=== PATIENT | female | born 1950 | race Caucasian/White ===

== ENCOUNTER → 2017-05-02 | Outpatient (CLI) | payer MEDICARE, OTHER, MEDICAID | END | disposition home or self-care (01) | LOC: Rad HDHVI 09:00 | PROVIDERS: ATTEND Internal Medicine Cardiovascular Disease | DX: I10 Essential (primary) hypertension (principal); R06.02 Shortness of breath | CPT/HCPCS: 93306 ==

== ENCOUNTER → 2019-10-18 | Outpatient (CLI) | payer MEDICARE, BC, MEDICAID ==
[~2019-10-18] VITALS: Ht 160 cm; Wt 113.4 kg
[~2019-10-18] MED LIST: ADENOSINE 90 MG/30 ML INJ IV ONE; ADENOSINE 95 MG in GIVE UN-DILUTED 0 ML IV ONE
== END | disposition home or self-care (01) ==
LOC: Rad HDHVI 12:45
PROVIDERS: ATTEND Internal Medicine Cardiovascular Disease
DX: I11.9 Hypertensive heart disease without heart failure (principal); E11.9 Type 2 diabetes mellitus without complications; Z82.49 Family history of ischemic heart disease and other diseases of the circulatory system
CPT/HCPCS: 78452; 93005; 93306; 96374; 96375; A9500; J0153

== ENCOUNTER → 2021-02-12 | Outpatient (CLI) | payer MEDICARE, BC, MEDICAID ==
[~2021-02-12] VITALS: Ht 157.5 cm; Wt 117.0 kg
[~2021-02-12] MED LIST changes: -ADENOSINE 95 MG in GIVE UN-DILUTED 0 ML IV ONE; +ADENOSINE 98 MG in GIVE UN-DILUTED 0 ML IV ONE
== END | disposition home or self-care (01) ==
LOC: Rad HDHVI 09:14
PROVIDERS: ATTEND Internal Medicine Cardiovascular Disease
DX: I25.10 Atherosclerotic heart disease of native coronary artery without angina pectoris (principal); I10 Essential (primary) hypertension; E11.9 Type 2 diabetes mellitus without complications; R07.9 Chest pain, unspecified; I25.2 Old myocardial infarction; Z95.0 Presence of cardiac pacemaker; Z95.1 Presence of aortocoronary bypass graft; Z82.49 Family history of ischemic heart disease and other diseases of the circulatory system
CPT/HCPCS: 78452; 93005; 96374; 96375; A9500; J0153

== ENCOUNTER → 2021-09-22 | Outpatient (CLI) | payer MEDICARE, BC, MEDICAID | END | disposition home or self-care (01) | LOC: Rad HDHVI 10:58 | PROVIDERS: ATTEND Internal Medicine Cardiovascular Disease | DX: I63.9 Cerebral infarction, unspecified (principal); R56.9 Unspecified convulsions; M47.814 Spondylosis without myelopathy or radiculopathy, thoracic region; M19.012 Primary osteoarthritis, left shoulder; M19.011 Primary osteoarthritis, right shoulder | CPT/HCPCS: 71046 ==

== ENCOUNTER → 2022-10-14 | Outpatient (CLI) | payer MEDICARE, BC | END | disposition home or self-care (01) | LOC: Rad HDHVI 13:21 | PROVIDERS: ATTEND Internal Medicine Cardiovascular Disease | DX: I35.8 Other nonrheumatic aortic valve disorders (principal); I11.9 Hypertensive heart disease without heart failure; E78.5 Hyperlipidemia, unspecified | CPT/HCPCS: 93306 ==

== ENCOUNTER 2022-11-29 18:55 | Inpatient (IN) | payer BC, MEDICARE, MEDICAID ==
[~2022-11-29] VITALS: Ht 152.4 cm; Wt 108.0 kg
[2022-11-29] MEDS ORDERED: NITROGLYCERIN 0.4 MG SL TAB SL PRN (22:15)
[2022-11-29] MEDS ORDERED: MORPHINE SULFATE INJ 2 MG/ml SYRG IV PRN (22:15)
[2022-11-29] MEDS ORDERED: DEXTROSE (50%) 50ML SYRG IV PRN (22:15)
[2022-11-29] MEDS ORDERED: guaiFENesin 200 MG/10 ML UD PO PRN (22:15)
[2022-11-29 22:43] VITALS: BP 115/62; PULSE 72; PULSE 75; RESP 20; RESP 22; O2SAT 96; O2SAT 98
[2022-11-29 23:18] VITALS: PULSE 66; O2SAT 100
[2022-11-29] MEDS ORDERED: LISI2.5T47 PO (23:25)
[2022-11-29] MEDS ORDERED: ATO40T PO (23:25)
[2022-11-29] MEDS ORDERED: TOPI25TA84 PO (23:25)
[2022-11-29] MEDS ORDERED: TORS20TA20 PO (23:25)
[2022-11-29] MEDS ORDERED: OXYB5TAB10 GT (23:25)
[2022-11-29] MEDS ORDERED: HYDR-4798 PO (23:25)
[2022-11-29] MEDS ORDERED: ALPR0.254 PO (23:25)
[2022-11-29] MEDS ORDERED: DAPA1TAB4 PO (23:25)
[2022-11-29] MEDS ORDERED: FEXO-42 PO (23:25)
[2022-11-29] MEDS ORDERED: INSU1INJ19 SC (23:25)
[2022-11-29] MEDS ORDERED: GLIP5TAB12 PO (23:25)
[2022-11-29] MEDS ORDERED: FLUT110A INH (23:25)
[2022-11-29] MEDS ORDERED: GABA-1250 PO (23:25)
[2022-11-29] MEDS ORDERED: MAGN400T40 PO (23:25)
[2022-11-29] MEDS ORDERED: GUAI200T6 PO (23:25)
[2022-11-29] MEDS ORDERED: METO25TA93 PO (23:25)
[2022-11-29] MEDS ORDERED: OMEG1400 PO (23:25)
[2022-11-29] MEDS ORDERED: ASPI-498 OR (23:25)
[2022-11-29] MEDS ORDERED: PHEN1CAP60 PO (23:25)
[2022-11-29] MEDS ORDERED: OMEP20TA PO (23:25)
[2022-11-29 23:46] LABS: Basophils # (auto) 0 10 ^3/uL (0-0.2); Basophils % (auto) 0.3 % (0.0-2.0); Eosinophils # (auto) 0 10 ^3/uL (0-0.8); Eosinophils % (auto) 0.1 % (0.0-7.0); Hematocrit 40.8 % (36.0-46.0); Hemoglobin 13.6 g/dL (12.2-16.2); Lymphocytes # (auto) 1.6 10 ^3/uL (0.4-5.4); Lymphocytes % (auto) 16.3 % (10.0-50.0); Mean Corpuscular Hemoglobin 32.6 pg (28.0-32.0); Mean Corpuscular Hgb Conc. 33.5 g/dL (32.0-36.0); Mean Corpuscular Volume 97.5 fL (80.0-100.0); Monocytes # (auto) 0.8 10 ^3/uL (0-1.3); Monocytes % (auto) 7.7 % (0.0-12.0); Neutrophils # (auto) 7.6 10 ^3/uL (1.6-8.6); Neutrophils % (auto) 75.6 % (37.0-80.0); Nucleated Red Blood Cells % 0.2 %; Red Blood Cells 4.18 10^6/uL (4.0-5.20); Red Cell Distribution Width 14.3 % (11.8-14.3); White Blood Cell 10.1 10^3/uL (4.4-10.8)
[2022-11-30] VITALS (17 sets, daily range): BP systolic 134–177; BP diastolic 79–95; PULSE 76–94; RESP 18–25; TEMP 98.2–98.6; O2SAT 94–100
[2022-11-30 00:07] LABS: BUN/Creatinine Ratio 36.2 (10.0-20.0); Calcium 7.6 mg/dL (8.5-10.1); Potassium 4.4 mmol/L (3.5-5.1)
[2022-11-30] MEDS: GABAPENTIN 300 MG CAP PO SCH ×3 (06:00→21:06)
[2022-11-30] MEDS: ALBUTEROL SULF 2.5 MG/0.5ML(0.5%) NEB SOLN NEB SCH ×3 (06:12→18:04)
[2022-11-30] MEDS: glipiZIDE 5 MG TAB PO SCH (07:00)
[2022-11-30] MEDS: InsuLIN REG 1unit/0.01ml Soln (100units/ml) SC SCH ×4 (07:07→21:32)
[2022-11-30] MEDS: ACCU-CHEK COMFORT CURVE STRIP VI SCH ×4 (07:07→21:28)
[2022-11-30] MEDS ORDERED: LORazepam 2MG/ML-1ML VIAL IV PRN (07:15)
[2022-11-30 09:39] LABS: Urine Bacteria NONE SEEN /hpf (None Seen); Urine Blood 2+ /uL (Negative); Urine Budding Yeast MANY /hpf (None Seen); Urine WBC 1138 /hpf (0 - 5); Urine WBC Clumps PRESENT /hpf (None Seen)
[2022-11-30] MEDS: PANTOPRAZOLE 40 MG TAB PO SCH (10:00)
[2022-11-30] MEDS: TORSEMIDE 20 MG TAB PO SCH (10:00)
[2022-11-30] MEDS: OXYBUTYNIN CHL 5 MG TAB PO SCH (10:00)
[2022-11-30] MEDS: TOPIRAMATE 25 MG TAB PO SCH (10:00)
[2022-11-30] MEDS: METOPROLOL SUCCINATE XL 50 MG TAB PO SCH (10:00)
[2022-11-30] MEDS ORDERED: cefTRIAXone 1GM/50ML D5W 50 ML IV ONE (13:15)
[2022-11-30] MEDS ORDERED: acetaZOLAMIDE SODIUM 500 MG VL IV ONE (13:45)
[2022-11-30] MEDS ORDERED: cloNIDine HCL 0.1 MG TAB PO PRN (18:00)
[2022-11-30] MEDS: PHENYTOIN SODIUM 100 MG CAP PO SCH (21:06)
[2022-11-30] MEDS: HYDROcodone-ACET 10/325MG TAB PO PRN (21:07)
[2022-11-30] MEDS: ENOXAPARIN SOD 40 MG/0.4 ML SYRINGE SC SCH (21:07)
[2022-12-01] VITALS (12 sets, daily range): BP systolic 149–158; BP diastolic 69–83; PULSE 70–85; RESP 16–19; TEMP 97.7–98.6; O2SAT 95–99
[2022-12-01] MEDS: ALBUTEROL SULF 2.5 MG/0.5ML(0.5%) NEB SOLN NEB SCH ×3 (06:32→18:52)
[2022-12-01] MEDS: GABAPENTIN 300 MG CAP PO SCH ×3 (06:43→21:07)
[2022-12-01] MEDS: ACCU-CHEK COMFORT CURVE STRIP VI SCH ×4 (06:45→21:08)
[2022-12-01] MEDS: glipiZIDE 5 MG TAB PO SCH (06:45)
[2022-12-01] MEDS: InsuLIN REG 1unit/0.01ml Soln (100units/ml) SC SCH ×4 (06:55→21:25)
[2022-12-01] MEDS: ENOXAPARIN SOD 40 MG/0.4 ML SYRINGE SC SCH ×2 (08:45→21:07)
[2022-12-01] MEDS: cefTRIAXone 1GM/50ML D5W 50 ML IV SCH (08:45)
[2022-12-01] MEDS: TORSEMIDE 20 MG TAB PO SCH (08:46)
[2022-12-01] MEDS: OXYBUTYNIN CHL 5 MG TAB PO SCH (08:48)
[2022-12-01] MEDS: PANTOPRAZOLE 40 MG TAB PO SCH (08:48)
[2022-12-01] MEDS: TOPIRAMATE 25 MG TAB PO SCH (08:49)
[2022-12-01] MEDS: METOPROLOL SUCCINATE XL 50 MG TAB PO SCH (08:53)
[2022-12-01] MEDS ORDERED: cefTRIAXone 1GM/50ML D5W 50 ML IV SCH (09:00)
[2022-12-01] MEDS ORDERED: ENOXAPARIN SOD 60 MG/0.6 ML SYRINGE SC SCH (10:00)
[2022-12-01 10:21] LABS: Basophils # (auto) 0 10 ^3/uL (0-0.2); Basophils % (auto) 0.4 % (0.0-2.0); Eosinophils # (auto) 0.1 10 ^3/uL (0-0.8); Hematocrit 43.6 % (36.0-46.0); Hemoglobin 14.4 g/dL (12.2-16.2); Lymphocytes # (auto) 1.2 10 ^3/uL (0.4-5.4); Lymphocytes % (auto) 16.1 % (10.0-50.0); Mean Corpuscular Hemoglobin 32.3 pg (28.0-32.0); Mean Corpuscular Volume 97.7 fL (80.0-100.0); Monocytes # (auto) 0.4 10 ^3/uL (0-1.3); Monocytes % (auto) 6.2 % (0.0-12.0); Neutrophils # (auto) 5.5 10 ^3/uL (1.6-8.6); Neutrophils % (auto) 76.3 % (37.0-80.0); Nucleated Red Blood Cells % 0.1 %; Red Blood Cells 4.46 10^6/uL (4.0-5.20); Red Cell Distribution Width 13.5 % (11.8-14.3); White Blood Cell 7.2 10^3/uL (4.4-10.8)
[2022-12-01 10:42] LABS: Albumin 2.7 g/dL (3.4-5.0); Calcium 8.4 mg/dL (8.5-10.1); Potassium 4.1 mmol/L (3.5-5.1)
[2022-12-01 10:45] LABS: BUN/Creatinine Ratio 36.1 (10.0-20.0); Bilirubin, Total 0.3 mg/dL (0.2-1.0); Total Protein 6.7 g/dL (6.4-8.2)
[2022-12-01] MEDS: ARMODAFINIL 150 MG TAB PO SCH (14:18)
[2022-12-01] MEDS: HYDROcodone-ACET 10/325MG TAB PO PRN (20:40)
[2022-12-01] MEDS: PHENYTOIN SODIUM 100 MG CAP PO SCH (21:07)
[2022-12-01] MEDS: NYSTATIN TOPICAL POWDER 15GM TOP SCH (21:20)
[2022-12-02] VITALS (12 sets, daily range): BP systolic 118–156; BP diastolic 58–70; PULSE 53–86; RESP 16–20; TEMP 98–99; O2SAT 92–100
[2022-12-02] MEDS: glipiZIDE 5 MG TAB PO SCH (06:13)
[2022-12-02] MEDS: GABAPENTIN 300 MG CAP PO SCH ×3 (06:13→21:29)
[2022-12-02] MEDS: ACCU-CHEK COMFORT CURVE STRIP VI SCH ×4 (06:14→21:30)
[2022-12-02] MEDS: InsuLIN REG 1unit/0.01ml Soln (100units/ml) SC SCH ×4 (06:17→21:44)
[2022-12-02] MEDS: ALBUTEROL SULF 2.5 MG/0.5ML(0.5%) NEB SOLN NEB SCH ×3 (07:03→19:52)
[2022-12-02] MEDS: cefTRIAXone 1GM/50ML D5W 50 ML IV SCH (08:11)
[2022-12-02] MEDS: TORSEMIDE 20 MG TAB PO SCH (09:23)
[2022-12-02] MEDS: OXYBUTYNIN CHL 5 MG TAB PO SCH (09:23)
[2022-12-02] MEDS: TOPIRAMATE 25 MG TAB PO SCH (09:23)
[2022-12-02] MEDS: ENOXAPARIN SOD 40 MG/0.4 ML SYRINGE SC SCH ×2 (09:23→21:30)
[2022-12-02] MEDS: METOPROLOL SUCCINATE XL 50 MG TAB PO SCH (09:25)
[2022-12-02] MEDS: PANTOPRAZOLE 40 MG TAB PO SCH (09:25)
[2022-12-02] MEDS: NYSTATIN TOPICAL POWDER 15GM TOP SCH ×2 (09:27→21:33)
[2022-12-02] MEDS: ARMODAFINIL 150 MG TAB PO SCH (09:54)
[2022-12-02] MEDS ORDERED: acetaZOLAMIDE SODIUM 500 MG VL IV ONE (14:30)
[2022-12-02] MEDS: PHENYTOIN SODIUM 100 MG CAP PO SCH (21:27)
[2022-12-02] MEDS: HYDROcodone-ACET 10/325MG TAB PO PRN (21:30)
[2022-12-03] VITALS (12 sets, daily range): BP systolic 124–133; BP diastolic 61–70; PULSE 64–86; RESP 16–20; TEMP 97.6–98; O2SAT 91–99
[2022-12-03] MEDS: ALBUTEROL SULF 2.5 MG/0.5ML(0.5%) NEB SOLN NEB SCH ×2 (06:18→11:55)
[2022-12-03] MEDS: glipiZIDE 5 MG TAB PO SCH (06:26)
[2022-12-03] MEDS: GABAPENTIN 300 MG CAP PO SCH ×2 (06:27→13:38)
[2022-12-03] MEDS: ACCU-CHEK COMFORT CURVE STRIP VI SCH ×3 (06:27→17:00)
[2022-12-03] MEDS: InsuLIN REG 1unit/0.01ml Soln (100units/ml) SC SCH ×3 (06:29→17:40)
[2022-12-03 06:56] LABS: Chloride 103 mmol/L (98-107); Potassium 3.4 mmol/L (3.5-5.1); Sodium 135 mmol/L (136-145)
[2022-12-03 07:20] LABS: Anion Gap 4 (5-15); BUN/Creatinine Ratio 37.7 (10.0-20.0); Blood Urea Nitrogen 23 mg/dL (7-18); Carbon Dioxide 28 mmol/L (21-32); GFR African American 124 mL/min; GFR Non-African American 102 mL/min; Glucose 203 mg/dL (74-106)
[2022-12-03] MEDS: cefTRIAXone 1GM/50ML D5W 50 ML IV SCH (08:50)
[2022-12-03] MEDS: NYSTATIN TOPICAL POWDER 15GM TOP SCH (09:01)
[2022-12-03] MEDS: ENOXAPARIN SOD 40 MG/0.4 ML SYRINGE SC SCH (09:01)
[2022-12-03] MEDS: PANTOPRAZOLE 40 MG TAB PO SCH (09:02)
[2022-12-03] MEDS: OXYBUTYNIN CHL 5 MG TAB PO SCH (09:02)
[2022-12-03] MEDS: TOPIRAMATE 25 MG TAB PO SCH (09:02)
[2022-12-03] MEDS: METOPROLOL SUCCINATE XL 50 MG TAB PO SCH (09:08)
[2022-12-03] MEDS: ARMODAFINIL 150 MG TAB PO SCH (09:22)
[2022-12-03] MEDS: TORSEMIDE 20 MG TAB PO SCH (09:22)
== END 2022-12-03 17:57 | disposition home or self-care (01) | DRG 871 ==
LOC: TELE-WESTW 21:30 → UNDOADMIN 21:30 → TELE-WESTW 22:40
PROVIDERS: ADMIT Internal Medicine Cardiovascular Disease; ATTEND Internal Medicine Cardiovascular Disease
PROC: 5A09357 Assistance with Respiratory Ventilation, Less than 24 Consecutive Hours, Continuous Positive Airway Pressure (ICD-10-PCS; principal; 2022-11-29)
PROC: 05HA33Z Insertion of Infusion Device into Left Brachial Vein, Percutaneous Approach (ICD-10-PCS; 2022-11-30)
PROC: B54NZZA Ultrasonography of Left Upper Extremity Veins, Guidance (ICD-10-PCS; 2022-11-30)
DX: A41.9 Sepsis, unspecified organism (principal); J96.90 Respiratory failure, unspecified, unspecified whether with hypoxia or hypercapnia; E87.4 Mixed disorder of acid-base balance; N39.0 Urinary tract infection, site not specified; Z68.42 Body mass index [BMI] 45.0-49.9, adult; E11.22 Type 2 diabetes mellitus with diabetic chronic kidney disease; E66.9 Obesity, unspecified; G40.909 Epilepsy, unspecified, not intractable, without status epilepticus; E11.42 Type 2 diabetes mellitus with diabetic polyneuropathy; I12.9 Hypertensive chronic kidney disease with stage 1 through stage 4 chronic kidney disease, or unspecified chronic kidney disease; N18.30 Chronic kidney disease, stage 3 unspecified; E11.40 Type 2 diabetes mellitus with diabetic neuropathy, unspecified
CPT/HCPCS: 36415; 36600; 71045; 80048; 80053; 80185; 81001; 82805; 82962; 85025; 92610; 94640; 94660; 97163; G0378; J0696; J1815

== ENCOUNTER → 2024-10-09 | Outpatient (CLI) | payer MEDICARE, MEDICAID, BC ==
[~2024-10-09] MED LIST changes: -ADENOSINE 90 MG/30 ML INJ IV ONE; -ADENOSINE 98 MG in GIVE UN-DILUTED 0 ML IV ONE; +ALPR0.254 PO; +ASPI-498 OR; +ATOR-507 PO; +DAPA1TAB4 PO; +FEXO-42 PO; +FLUT110A INH; +GABA-1250 PO; +GLIP5TAB21 PO; +GUAI200T6 PO; +HYDR-4798 PO; +INSU1INJ19 SC; +LISI2.5T47 PO; +MAGN400T40 PO; +METO25TA93 PO; +OMEG1400 PO; +OMEP20TA PO; +OXYB5TAB14 GT; +PHEN1CAP38 PO; +TOPI25TA84 PO; +TORS20TA20 PO
[2024-10-09 11:43] VITALS: BP 97/41; PULSE 83; RESP 18; O2SAT 93
[2024-10-09] MEDS: cefTRIAXone 1GM/50ML D5W 50 ML IV ONE ×2 (11:53→11:55)
[2024-10-09] MEDS: BUMETANIDE INJECTION 10 ML ONE (11:53)
[2024-10-09] MEDS: BUMETANIDE 2.5mg/10ml (0.25 mg/ml) INJ IV ONE (12:33)
[2024-10-09 12:55] VITALS: BP 150/66; PULSE 89; RESP 18; O2SAT 93
== END | disposition home or self-care (01) ==
LOC: CHF HDHVI 11:49
PROVIDERS: ATTEND Internal Medicine Cardiovascular Disease
DX: L03.116 Cellulitis of left lower limb (principal); I12.9 Hypertensive chronic kidney disease with stage 1 through stage 4 chronic kidney disease, or unspecified chronic kidney disease; E11.22 Type 2 diabetes mellitus with diabetic chronic kidney disease; N18.30 Chronic kidney disease, stage 3 unspecified; E11.42 Type 2 diabetes mellitus with diabetic polyneuropathy; G40.909 Epilepsy, unspecified, not intractable, without status epilepticus; M19.012 Primary osteoarthritis, left shoulder; E78.5 Hyperlipidemia, unspecified; M19.011 Primary osteoarthritis, right shoulder; I25.10 Atherosclerotic heart disease of native coronary artery without angina pectoris; I25.2 Old myocardial infarction; E66.9 Obesity, unspecified; Z68.42 Body mass index [BMI] 45.0-49.9, adult; Z95.0 Presence of cardiac pacemaker; Z87.440 Personal history of urinary (tract) infections; Z95.1 Presence of aortocoronary bypass graft
CPT/HCPCS: 96365; 96375; G0463; J0696

== ENCOUNTER → 2024-10-11 | Outpatient (CLI) | payer MEDICARE, MEDICAID, BC ==
[2024-10-11 13:25] VITALS: BP 156/69; PULSE 81; RESP 18; O2SAT 92
[2024-10-11] MEDS: BUMETANIDE INJECTION 10 ML ONE (13:38)
[2024-10-11] MEDS: cefTRIAXone 1GM/50ML D5W 50 ML IV ONE ×2 (13:38→13:52)
[2024-10-11] MEDS: BUMETANIDE 2.5mg/10ml (0.25 mg/ml) INJ IV ONE (14:21)
[2024-10-11 14:46] VITALS: BP 145/65; PULSE 88; RESP 18; O2SAT 92
== END | disposition home or self-care (01) ==
LOC: CHF HDHVI 13:12
PROVIDERS: ATTEND Internal Medicine Cardiovascular Disease
DX: L03.116 Cellulitis of left lower limb (principal); I12.9 Hypertensive chronic kidney disease with stage 1 through stage 4 chronic kidney disease, or unspecified chronic kidney disease; E11.22 Type 2 diabetes mellitus with diabetic chronic kidney disease; N18.30 Chronic kidney disease, stage 3 unspecified; E11.42 Type 2 diabetes mellitus with diabetic polyneuropathy; I25.10 Atherosclerotic heart disease of native coronary artery without angina pectoris; G40.909 Epilepsy, unspecified, not intractable, without status epilepticus; E78.5 Hyperlipidemia, unspecified; M19.012 Primary osteoarthritis, left shoulder; M19.011 Primary osteoarthritis, right shoulder; I25.2 Old myocardial infarction; E66.9 Obesity, unspecified; Z68.42 Body mass index [BMI] 45.0-49.9, adult; Z87.440 Personal history of urinary (tract) infections; Z95.1 Presence of aortocoronary bypass graft; Z95.0 Presence of cardiac pacemaker
CPT/HCPCS: 96365; 96375; G0463; J0696

== ENCOUNTER 2024-11-05 17:49 | Emergency (ER) | payer MEDICARE, BC, MEDICAID ==
[~2024-11-05] VITALS: Ht 157.5 cm; Wt 105.4 kg
--- NOTE | 2024-11-05 18:18 | ED.PDOC ---
Musculoskeletal HPI Comments HPI: 74y F who presents to the ED for chief complaint of extremity swelling. - pt is accompanied by sister who states pt has been having LLE redness, pain and swelling for the past 2 days - pt LLE is noted to be swollen and pt sister states the LLE feels hard and is hyperpigmented - pt in the ED, otherwise denies any other symptoms - pt noted to be in wheelchair in the ED Past Medical history: UTI, epilepsy, sepsis, HTN, DM, thyroid disease, COPD, Past Surgical history: cholecystectomy, hysterectomy, bronchoscopy Medications: Lasix, Tegretol, hydrocodone, Allergies: denies Social History: denies ETOH, denies tobacco use, denies drug use HPI: Poor Historian. REVIEW OF SYSTEMS: CONSTITUTIONAL: Denies acute: fever, diaphoresis, chills, generalized weakness. HEAD: Denies acute: headache, photophobia Eyes: Denies acute: Double vision, vision loss, eye pain, eye discharge. EARS: Denies acute: tinnitus, hearing loss, ear discharge, ear pain, THROAT: Denies acute: sore throat, swelling, difficulty swallowing , pain with swallowing, change in voice. NECK: Denies acute: neck pain, neck swelling, stiff neck. HEART: Denies acute : chest pain, palpitations, LUNGS: Denies acute: SOB, wheezing, cough, hemoptysis ABDOMEN: Denies acute: abdominal pain, Nausea, Vomiting, diarrhea, melena , hematemesis, hematochezia SKIN: Denies acute: lesions, itchiness. EXTREMITIES: Denies acute: calf pain, numbness, tingling, weakness, Denies acute: Low back pain. Neuro: Denies acute: focal neurological deficit, motor or sensory focal neurological deficit, tremors, seizure like activity, confusion, dizziness, change in mental status, loss of bowel or bladder function, cauda equina like symptoms. : Denies acute: dysuria, hematuria, flank pain, increase in urinary frequency. PSYCH: Denies acute: hallucination, suicidal ideation, homicidal ideation. FEMALE: Denies acute: abnormal vaginal bleeding, foul odor, unusual discharge. PHYSICAL EXAM: General: ----no---acute distress, awake and alert. Head: normocephalic, atraumatic. Neck: supple, trachea is midline, no swelling. Throat: Normal phonation. Eyes:, no erythema, no purulent discharge, no proptosis, no icterus. Heart: regular rate, regular rhythm, no significant murmur appreciated. Lungs: no apparent respiratory distress, Able to speak in full sentences. No wheezing, no rhonchi, no crackles. No stridors Clear to auscultation bilaterally. Abdomen: non tender to palpation, non distended, soft, no guarding, no rebound, + bowel sounds. Obese Neuro: Awake, Alert, oriented to name, self, situation, follows commands GCS=15. Speech is normal. Skin: no petechia, no purpura, no cyanosis, non-pale, not jaundice. Lower extremities: --2/4 b/l - Pitting edema no deformity, , no calf TTP. Evaluation of the area of complaint: Left foot symmetrically edematous to the right foot however there is erythema. Pedal pulses palpable. Patient is anthony rovascularly intact in the affected extremity. Makes eye contact. moves all four extremities. Face: no apparent facial droop. Pedal pulses are palpable. ED COURSE: DISCLAIMER: This medical document was created using an electronic medical record system with voice recognition software and computerized dictation system. Although this document has been carefully reviewed, there might still be some phonetic and typographical errors. Occasional wrong-word or "sound-alike" substitutions may have occurred due to the inherent limitations of voice recognition software. These areas are purely typographical due to imperfections of the software programs and do not reflect any compromise in the patient's medical care. Please read the chart carefully and recognize, using context, where these substitutions have occurred. Chief Complaint: Lower Extremity Time Seen by MD: 18:28 Primary Care Provider: AMADA Reviewed Notes: Medications, Allergies Allergies: Coded Allergies: NO KNOWN ALLERGIES (Unverified , 10/18/19) Home Meds Active Scripts Clindamycin Hcl (Clindamycin Hcl) 300 Mg Cap, 1 CAP PO TID for 7 Days, #21 CAP Prov:ARIC BARRETT DO 11/05/24 Reported Medications Torsemide (Torsemide) 20 Mg Tab, 20 MG PO, MG 11/29/22 Topiramate (Topiramate) 25 Mg Tab, 1 TAB PO DAILY, #90 TAB 1 Refill 11/29/22 Oxybutynin Chloride (Oxybutynin Chloride) 5 Mg Tab, 5 MG GT, TAB 11/29/22 Omeprazole (Gnp Omeprazole) 20 Mg Tab, 1 TAB PO DAILY, #90 TAB 1 Refill 11/29/22 Tracy-3 Fatty Acids (Tracy-3) 1,400 Mg Cap, 520 MG PO, CAP 11/29/22 Metoprolol Succinate (Metoprolol Succinate Er) 25 Mg Tab, 25 MG PO DAILY for 30 Days, MG 11/29/22 Metoprolol Succinate (Metoprolol Succinate Er) 25 Mg Tab, 25 MG PO DAILY for 30 Days, MG 11/29/22 Magnesium Oxide (MAGNESIUM OXIDE) 400 Mg Tab, 1 TAB PO DAILY, #30 TAB 5 Refills 11/29/22 Lisinopril (Lisinopril) 2.5 Mg Tab, 5 MG PO, TAB 11/29/22 Hydrocodone-Acetaminophen (Hydrocodone Bitartrate/AC 10-325 mg) 1 Tab Tab, 1 TAB PO, TAB 11/29/22 Guaifenesin (Guaifenesin) 200 Mg Tab, 100 MG PO, TAB 11/29/22 Glipizide (Glipizide) 5 Mg Tab, 5 MG PO for 30 Days, MG 11/29/22 Gabapentin (Gabapentin) 300 Mg Cap, 300 MG PO Q6HR for 30 Days, MG 11/29/22 Fluticasone Propionate (FLOVENT HFA 110Mcg INH) 110 Mcg Ih, 110 MCG INH Q12HR for 30 Days, MCG 11/29/22 Dapagliflozin Propanediol (Farxiga) 10 Mg Tab, 10 MG PO, TAB 11/29/22 Phenytoin Sodium (DILANTIN CAPSULE) 100 Mg Cp, 400 MG PO BID, CAP 11/29/22 Insulin Glargine (Basaglar Kwikpen) 100 Unit/Ml Inj, SC, INJ 11/29/22 Atorvastatin Calcium (Lipitor) 40 Mg Tab, 1 TAB PO QPM, #90 TAB 1 Refill 11/29/22 Aspirin (ASPIRIN 81) 81 Mg Tab, 81 MG OR, TAB 11/29/22 Alprazolam (Alprazolam) 0.25 Mg Tab, 1 TAB PO DAILY, #30 TAB 11/29/22 Fexofenadine Hydrochloride (EDDIE ALLERGY) 180 Mg Tab, 1 TAB PO DAILY, #30 TAB 2 Refills 11/29/22 Information Source: Patient Mode of Arrival: Wheelchair Was a procedure done? Was a procedure done?: No Differential Diagnosis EXT Differential Diagnosis: Cellulitis, CHF, Deep Vein Thrombosis, Compartment Syndrome, Sprain, Strain, Septic, Neurovascular injury, Other (Leg swellingDdx include but not limited to DVT, ischemic limb, pitting edema, volume overload, CHF, cellulitis, hematoma, compartment syndrome, dependent edema, venous stasis.) X-Ray, Labs, Meds, VS Vital Signs Date Time Temp Pulse Resp B/P (MAP) Pulse Ox O2 Delivery O2 Flow Rate FiO2 11/05/24 21:49 154/78 11/05/24 21:36 Room Air* 0 21 11/05/24 21:36 97.5 79 16 157/73 (101) 96 97.5 11/05/24 18:12 91 11/05/24 18:11 98.3 94 16 135/67 (89) 94 98.3 Lab Test 11/05/24 19:12 Range/Units White Blood Count 7.0 4.4-10.8 10^3/uL Red Blood Count 4.03 4.0-5.20 10^6/uL Hemoglobin 13.2 12.2-16.2 g/dL Hematocrit 38.1 36.0-46.0 % Mean Corpuscular Volume 94.5 80.0-100.0 fL Mean Corpuscular Hemoglobin 32.7 H 28.0-32.0 pg Mean Corpuscular Hemoglobin Concent 34.6 32.0-36.0 g/dL Red Cell Distribution Width 13.8 11.8-14.3 % Platelet Count 193 140-450 10^3/uL Mean Platelet Volume 7.4 6.9-10.8 fL Neutrophils (%) (Auto) 68.6 37.0-80.0 % Lymphocytes (%) (Auto) 20.5 10.0-50.0 % Monocytes (%) (Auto) 7.5 0.0-12.0 % Eosinophils (%) (Auto) 2.9 0.0-7.0 % Basophils (%) (Auto) 0.5 0.0-2.0 % Neutrophils # (Auto) 4.8 1.6-8.6 10 ^3/uL Lymphocytes # (Auto) 1.4 0.4-5.4 10 ^3/uL Monocytes # (Auto) 0.5 0-1.3 10 ^3/uL Eosinophils # (Auto) 0.2 0-0.8 10 ^3/uL Basophils # (Auto) 0 0-0.2 10 ^3/uL Nucleated Red Blood Cells 0.1 % Erythrocyte Sedimentation Rate 29 H 0-20 mm/hr Sodium Level 147 H 136-145 mmol/L Potassium Level 3.8 3.5-5.1 mmol/L Chloride Level 111 H 98-107 mmol/L Carbon Dioxide Level 29 20-31 mmol/L Anion Gap 7 5-15 Blood Urea Nitrogen 14 9-23 mg/dL Creatinine 0.57 0.550-1.02 mg/dL Glomerular Filtration Rate Calc 95 >90 mL/min BUN/Creatinine Ratio 24.6 H 10.0-20.0 Serum Glucose 156 H 74-106 mg/dL Lactic Acid Level 1.4 0.4-2.0 mmol/L Calcium Level 9.2 8.7-10.4 mg/dL Total Bilirubin 0.2 0.2-1.0 mg/dL Aspartate Amino Transferase (AST) 13 <34 U/L Alanine Aminotransferase (ALT) < 9 7-40 U/L Alkaline Phosphatase 104 46-116 U/L C-Reactive Protein High Sensitivity 0.76 <1.0 mg/dL B-Type Natriuretic Peptide 35.61 0-100 pg/mL Total Protein 6.4 5.7-8.2 g/dL Albumin 3.3 3.2-4.8 g/dL [place] [address] Ph: [phone] DIAGNOSTIC IMAGING Diagnostic Imaging Report : [id number] Signed PATIENT: NEELAM ZUNIGA ACCT: [id number] UNIT: [id number] : 1950 LOC: ER ROOM / BED: / AGE / SEX: 74 / F ADM STATUS: REG ER SERVICE [id number] ORDERING PHYSICIAN: ARIC BARRETT DO PROCEDURE(s): LLDVT - LT Lower DVT REASON: swelling redness ORDER NUMBER(s): [id number], ACCESSION NUMBER(s): [id number] EXAM: US Duplex Left Lower Extremity Veins CLINICAL INDICATION: swelling redness TECHNIQUE: Real-time duplex ultrasound scan of the left lower extremity veins integrating B-mode two-dimensional vascular structure, Doppler spectral analysis, color flow Doppler imaging and compression. COMPARISON: None FINDINGS: DEEP VEINS: Unremarkable. No DVT in the visualized common femoral, femoral, proximal deep femoral or popliteal veins. The veins demonstrate normal color flow, are normally compressible, with normal phasic flow and/or augmentation response. SUPERFICIAL VEINS: Unremarkable. No thrombus in the visualized great saphenous vein. SOFT TISSUES: No acute findings. No popliteal cyst. OTHER FINDINGS: . IMPRESSION: No DVT. ATED BY: MARY WU MD DICTATED DATE/TIME: 11/05/241948 SIGNED BY: MARY WU MD SIGNED DATE/TIME: 11/05/241948 CC: Time of 1ST Reevaluation: 00:00 Reevaluation 1ST: Patient Education/Counseling: Diagnosis, Treatment Family Education/Counseling: No Family Present Comments Patient presented with the above HPI.-leg swelling/redness-----workup was initiated. patient was found with the above mentioned diagnosis. the following medications were ordered: please refer to order lists of meds and tests obtained by myself Dr. Barrett. Patient ED course and VS have been stabilized. Patient has been reassessed in the ED and remained in a stable condition. Pertinent incidental findings were discussed with the patient and/or family. Patient/family voices understanding and is agreeable with plan. Patient has been observed in the ED adequate length of time to insure improvement/stability. Escalation of care considered: Consideration of escalation to observation or admission Ultrasound shows no DVT. Patient was DISCHARGED home in a stable condition. All the reports of any imaging studies that were ordered by myself were reviewed by myself. Departure 1 Departure Time of Disposition: 20:25 Impression: Primary Impression: Cellulitis of foot, left Disposition: HOME / SELF CARE / HOMELESS Condition: Stable Additional Instructions: Additional instructions: You MUST follow-up with your primary care/family doctor in 1 to 2 days. If you are unable to see your primary care/family doctor, please return to our emergency room for re-assessment and re-evaluation in 1 to 2 days. Return to the emergency room here in our facility or to the nearest ER [facility] if your symptoms change or worsen. CONSULTATIONS: you MUST Follow-up for consultation as soon as possible with: --cardiology in 1-2 days. Please call for appointment You MUST call the consultants office yourself to make an appointment. You may need to arrange that through your insurance and/or your primary/family doctor. If you are unable to see the continuous improvement consultant in 1 to 2 days, you must return to our emergency room (or any other ER of your choice) for re-assessment and re- evaluation. Adequate fluid hydration. Below is a copy of your radiological report for follow up: [place] [address] Ph: [phone] DIAGNOSTIC IMAGING Diagnostic Imaging Report : [id number] Signed PATIENT: NEELAM ZUNIGA ACCT: [id number] UNIT: [id number] : 1950 LOC: ER ROOM / BED: / AGE / SEX: 74 / F ADM STATUS: REG ER SERVICE 36 ORDERING PHYSICIAN: ARIC BARRETT DO PROCEDURE(s): LLDVT - LT Lower DVT REASON: swelling redness ORDER NUMBER(s): [id number], ACCESSION NUMBER(s): [id number] EXAM: US Duplex Left Lower Extremity Veins CLINICAL INDICATION: swelling redness TECHNIQUE: Real-time duplex ultrasound scan of the left lower extremity veins i ntegrating B-mode two-dimensional vascular structure, Doppler spectral analysis, color flow Doppler imaging and compression. COMPARISON: None FINDINGS: DEEP VEINS: Unremarkable. No DVT in the visualized common femoral, femoral, proximal deep femoral or popliteal veins. The veins demonstrate normal color flow, are normally compressible, with normal phasic flow and/or augmentation response. SUPERFICIAL VEINS: Unremarkable. No thrombus in the visualized great saphenous vein. SOFT TISSUES: No acute findings. No popliteal cyst. OTHER FINDINGS: . IMPRESSION: No DVT. ATED BY: MARY WU MD DICTATED DATE/TIME: 11/05/241948 SIGNED BY: MARY WU MD SIGNED DATE/TIME: 06/16/25 1949 CC: e-Prescriptions Clindamycin Hcl (Clindamycin Hcl) 300 Mg Cap 1 CAP PO TID for 7 Days, #21 CAP Prov: ARIC BARRETT DO 11/05/24 Discharged With: Self Critical Care Note Critical Care Time?: No Heart Score Heart Score: Heart Score Response (Comments) Value History Slightly Suspicious 0 EKG Normal 0 Age >65 2 Risk Factors 1 or 2 risk factors 1 Troponin Normal limit 0 Total 3 I personally scribed for ARIC BARRETT DO ([email or web address]) on 11/05/24 at 18:18. Electronically submitted by Magui Sauer ([facility] I personally scribed for ARIC BARRETT DO ([email or web address]) on 11/05/24 at 18:29. Electronically submitted by Magui Sauer ([email or web address]). I personally scribed for ARIC BARRETT DO ([email or web address]) on 11/05/24 at 19:58. Electronically submitted by Magui Sauer ([facility]). ARIC BARRETT DO Nov 05, 2024 18:18
[2024-11-05 19:32] LABS: Basophils # (auto) 0 10 ^3/uL (0-0.2); Basophils % (auto) 0.5 % (0.0-2.0); Eosinophils # (auto) 0.2 10 ^3/uL (0-0.8); Eosinophils % (auto) 2.9 % (0.0-7.0); Hematocrit 38.1 % (36.0-46.0); Hemoglobin 13.2 g/dL (12.2-16.2); Lymphocytes # (auto) 1.4 10 ^3/uL (0.4-5.4); Lymphocytes % (auto) 20.5 % (10.0-50.0); Mean Corpuscular Hemoglobin 32.7 pg (28.0-32.0); Mean Corpuscular Hgb Conc. 34.6 g/dL (32.0-36.0); Mean Corpuscular Volume 94.5 fL (80.0-100.0); Monocytes # (auto) 0.5 10 ^3/uL (0-1.3); Monocytes % (auto) 7.5 % (0.0-12.0); Neutrophils # (auto) 4.8 10 ^3/uL (1.6-8.6); Neutrophils % (auto) 68.6 % (37.0-80.0); Nucleated Red Blood Cells % 0.1 %; Platelet Count (auto) 193 10^3/uL (140-450); Red Blood Cells 4.03 10^6/uL (4.0-5.20); Red Cell Distribution Width 13.8 % (11.8-14.3)
--- NOTE | 2024-11-05 19:51 | DVH ---
EXAM: US Duplex Left Lower Extremity Veins CLINICAL INDICATION: swelling redness TECHNIQUE: Real-time duplex ultrasound scan of the left lower extremity veins integrating B-mode two -dimensional vascular structure, Doppler spectral analysis, color flow Doppler imaging and compressio n. COMPARISON: None FINDINGS: DEEP VEINS: Unremarkable. No DVT in the visualized common femoral, femoral, proximal deep femoral or popliteal veins. The veins demonstrate normal color flow, are normally compressible, with normal phasic flow and/or augmentation response. SUPERFICIAL VEINS: Unremarkable. No thrombus in the visualized great saphenous vein. SOFT TISSUES: No acute findings. No popliteal cyst. OTHER FINDINGS: . IMPRESSION: No DVT.
[2024-11-05 19:52] LABS: Albumin 3.3 g/dL (3.2-4.8); Alkaline Phosphatase 104 U/L (46-116); Anion Gap 7 (5-15); Aspartate Aminotransferase 13 U/L (<34); BUN/Creatinine Ratio 24.6 (10.0-20.0); Blood Urea Nitrogen 14 mg/dL (9-23); Calcium 9.2 mg/dL (8.7-10.4); Carbon Dioxide 29 mmol/L (20-31); Potassium 3.8 mmol/L (3.5-5.1); Total Protein 6.4 g/dL (5.7-8.2)
[2024-11-05 19:53] LABS: Chloride 111 mmol/L (98-107); Glucose 156 mg/dL (74-106); Sodium 147 mmol/L (136-145)
[2024-11-05 19:54] LABS: Alanine Aminotransferase < 9 U/L (7-40); Bilirubin, Total 0.2 mg/dL (0.2-1.0)
[2024-11-05 20:12] LABS: Erythrocyte Sedimentation Rate 29 mm/hr (0-20)
[2024-11-05 20:13] LABS: CRP High Sensitivity 0.76 mg/dL (<1.0)
[2024-11-05] MEDS ORDERED: CLIN1CAP70 PO (20:27)
[2024-11-05 21:36] VITALS: BP 157/73; PULSE 79; RESP 16; TEMP 97.5; O2SAT 96
[2024-11-05] MEDS: FUROSEMIDE 20 MG/2 ML VIAL IV ONE (21:49)
[2024-11-05] MEDS: CLINDAMYCIN 600MG IV 50 ML IV ONE (21:50)
--- NOTE | 2024-11-06 06:49 | ECG ---
[facility] [place] Test Date: 2024-11-05 Test Time: 18:12:55 Pat Name: NEELAM ZUNIGA Department: ER Room: Gender: F [employer] Cell [employer]er: ROYA : 1950 Requested By: ARIC BARRETT Order Number: [id number] Reading MD: Antoine Bean Measurements Intervals Haskell Rate: 91 P: 60 GA: 192 QRS: 78 QRSD: 75 T: -11 QT: 343 QTc: 423 Interpretive Statements Sinus rhythm Consider left atrial enlargement Low voltage, precordial leads Probable anteroseptal infarct, old Borderline T abnormalities, inferior leads Electronically Signed On 11-06-2024 17:44:04 PDT by Antoine Bean Please click the below link to view image of tracing.
== END 2024-11-05 22:21 | disposition home or self-care (01) ==
LOC: ER 17:49
DX: L03.116 Cellulitis of left lower limb (principal); G40.909 Epilepsy, unspecified, not intractable, without status epilepticus; E11.9 Type 2 diabetes mellitus without complications; I10 Essential (primary) hypertension; J44.9 Chronic obstructive pulmonary disease, unspecified; Z79.51 Long term (current) use of inhaled steroids; Z79.899 Other long term (current) drug therapy; Z87.440 Personal history of urinary (tract) infections; Z90.49 Acquired absence of other specified parts of digestive tract; Z90.710 Acquired absence of both cervix and uterus
CPT/HCPCS: 36415; 80053; 83605; 83880; 85025; 85652; 86141; 93005; 93971; 96365; 96375; 99285; J1940; J3490

== ENCOUNTER 2025-01-17 13:56 | Inpatient (IN) | payer MEDICARE, BC, MEDICAID ==
[~2025-01-17] VITALS: Ht 157.5 cm; Wt 108.0 kg
[~2025-01-17 13:56] MED LIST changes: +CLIN1CAP70 PO
[2025-01-17] MEDS ORDERED: FUROSEMIDE INJECTION 100 MG in SODIUM CHL 0.9% 100 ML IV SCH (17:15)
[2025-01-17] MEDS ORDERED: HYDROcodone-ACET 10/325MG TAB PO PRN (17:30)
[2025-01-17 17:35] VITALS: BP 136/76; PULSE 79; RESP 18; TEMP 98.3; O2SAT 92
[2025-01-17] MEDS ORDERED: MORPHINE SULFATE INJ 2 MG/ml SYRG IV PRN (17:45)
[2025-01-17] MEDS ORDERED: NITROGLYCERIN 0.4 MG SL TAB SL PRN (17:45)
--- NOTE | 2025-01-17 18:13 | DVH ---
EXAM: XY CHEST XRAY 1 VIEW TECHNIQUE: Single frontal chest radiograph CLINICAL HISTORY: SOB COMPARISON: XY CHEST XRAY 1 VIEW on DOS: 11/30/22 Findings/Impression: Frontal chest radiograph demonstrates the patient is rotated to the left. No acute osseous or superfi cial soft tissue abnormalities. The trachea is midline. The cardiac silhouette and mediastinum are within normal limits. No pneumothorax, pleural effusions, or consolidations.
[2025-01-17 19:57] LABS: Hematocrit 40.6 % (36.0-46.0); Hemoglobin 13.9 g/dL (12.2-16.2); Mean Corpuscular Hemoglobin 32.0 pg (28.0-32.0); Mean Corpuscular Volume 93.3 fL (80.0-100.0); Nucleated Red Blood Cells % 0.1 %
[2025-01-17 20:00] VITALS: PULSE 76; RESP 16; O2SAT 92
[2025-01-17 20:11] LABS: Albumin 3.6 g/dL (3.2-4.8); Alkaline Phosphatase 112 U/L (46-116); Anion Gap 6 (5-15); BUN/Creatinine Ratio 43.4 (10.0-20.0); Calcium 8.9 mg/dL (8.7-10.4); Glucose 77 mg/dL (74-106); Total Protein 6.9 g/dL (5.7-8.2)
[2025-01-17 20:15] LABS: Alanine Aminotransferase 52 U/L (7-40); Bilirubin, Total 0.2 mg/dL (0.2-1.0); Blood Urea Nitrogen 23 mg/dL (9-23); Carbon Dioxide 33 mmol/L (20-31); Chloride 109 mmol/L (98-107); Potassium 3.5 mmol/L (3.5-5.1); Sodium 148 mmol/L (136-145)
[2025-01-17 21:00] VITALS: BP 146/83; PULSE 76; RESP 18; TEMP 97.7; O2SAT 92
[2025-01-17] MEDS ORDERED: DOXA4TAB83 PO (21:04)
[2025-01-17] MEDS ORDERED: DOCU-94 PO (21:04)
[2025-01-17] MEDS ORDERED: BUMEX2MG (21:04)
[2025-01-17] MEDS ORDERED: ALBUAER3 IN (21:04)
[2025-01-17] MEDS ORDERED: POTA-215 PO (21:04)
[2025-01-17] MEDS ORDERED: TAMS-35 PO (21:04)
[2025-01-17] MEDS ORDERED: LEVO-848 PO (21:04)
[2025-01-17] MEDS ORDERED: CARB200T PO (21:04)
[2025-01-17] MEDS ORDERED: METO5TAB5 PO (21:04)
[2025-01-17] MEDS ORDERED: IBU600T PO (21:04)
[2025-01-17] MEDS: FUROSEMIDE INJECTION 100 MG in SODIUM CHL 0.9% 100 ML IV SCH (21:14)
[2025-01-17] MEDS: FLOVENT 110 MCG IN SCH (22:00)
[2025-01-17] MEDS: PHENYTOIN SODIUM 100 MG CAP PO SCH (22:37)
[2025-01-17] MEDS: GABAPENTIN 300 MG CAP PO SCH (22:37)
[2025-01-17] MEDS: MEROPENEM 1GM IVPB 50 ML IV SCH (22:38)
[2025-01-17] MEDS: INSULIN LANTUS (GLARGINE) 1 /0.01ml (100units/ml) SC SCH (22:43)
[2025-01-18] VITALS (10 sets, daily range): BP systolic 115–146; BP diastolic 59–79; PULSE 60–84; RESP 16–22; TEMP 97.6–98.4; O2SAT 92–98
[2025-01-18] MEDS: glipiZIDE 5 MG TAB PO SCH (06:38)
[2025-01-18] MEDS: METOPROLOL SUCCINATE XL 50 MG TAB PO SCH (10:11)
[2025-01-18] MEDS: OXYBUTYNIN CHL 5 MG TAB PO ONE (10:11)
[2025-01-18] MEDS: ALPRAZolam 0.25 MG TAB PO SCH (10:11)
[2025-01-18] MEDS: LISINOPRIL 5 MG TAB PO SCH (10:12)
[2025-01-18] MEDS: TOPIRAMATE 25 MG TAB PO SCH (10:12)
[2025-01-18] MEDS: PANTOPRAZOLE 40 MG/10 ML VIAL INJ IV SCH (10:12)
--- NOTE | 2025-01-18 15:10 | DVHPN2 ---
Progress Note - Dictate Date Seen: Jan 18, 2025 Medical Necessity Reason Pt with a Central, PICC or Fol: Yes The following are medically ne: [place] Catheter Subjective PT WITH ANASARCA RECURRENT UTI FAILURE REPEATED OUTPATIENT TREATMENT PMH RESP FAILURE HYPOVENTILATION SYNDROME DIABETES VASCULOPATHGY NEUROPATHY SEIZURE DISORDER OBESITY HTN UTI PYURIA vital signs Vital Sign Date Time Temp Pulse Resp B/P (MAP) Pulse Ox O2 Delivery O2 Flow Rate FiO2 01/18/25 13:00 97.9 84 17 130/73 (92) 95 97.9 01/18/25 08:00 Room Air* 0 21 Total Intake and Output 01/17/25 01/17/25 01/18/25 15:00 23:00 07:00 Intake Total 655 ml Output Total 1500 ml Balance -845 ml medications Current Medications Medications Dose Ordered Sig/Ernie Route Start Time Stop Time Status Last Admin Dose Admin Meropenem 50 ml @ 17 mls/hr Q8HR IV 01/17/25 22:00 01/18/25 14:05 17 MLS/HR Alprazolam 0.25 mg DAILY PO 01/18/25 10:00 01/18/25 10:11 0.25 MG Gabapentin 300 mg Q6HR PO 01/17/25 18:00 01/18/25 12:36 300 MG Glipizide 5 mg TIDAC PO 01/18/25 07:00 01/18/25 12:43 5 MG Acetaminophen/ Hydrocodone Bitart 1 tab Q6HP PRN PO 01/17/25 17:30 Phenytoin Sodium 400 mg BID PO 01/17/25 22:00 01/18/25 10:11 400 MG Topiramate 25 mg DAILY PO 01/18/25 10:00 01/18/25 10:12 25 MG Patient Own Medication 110 mcg Q12HR IN 01/17/25 22:00 Metoprolol Succinate 25 mg DAILY PO 01/18/25 10:00 01/18/25 10:11 25 MG Lisinopril 5 mg DAILY PO 01/18/25 10:00 01/18/25 10:12 5 MG Insulin Glargine 40 units BID@0700,2200 SC 01/17/25 22:00 01/17/25 22:43 40 UNITS Pantoprazole Sodium 40 mg DAILY IV 01/18/25 10:00 01/18/25 10:12 40 MG Nitroglycerin 0.4 mg Q5MINP PRN SL 01/17/25 17:45 Morphine Sulfate 2 mg Q30M PRN IV 01/17/25 17:45 Furosemide 100 mg/ Sodium Chloride 110 ml @ 11 mls/hr Q10H IV 01/17/25 20:15 01/18/25 06:35 11 MLS/HR laboratory and microbiology Laboratory Tests 01/17/25 19:41 Test 01/17/25 19:41 Range/Units Serum Glucose 77 74-106 mg/dL Problem List ANASARCA RECURRENT UTI FAILURE REPEATED OUTPATIENT TREATMENT PMH RESP FAILURE HYPOVENTILATION SYNDROME DIABETES VASCULOPATHGY NEUROPATHY SEIZURE DISORDER OBESITY HTN UTI PYURIA Assessment/Plan PYURIA RESP ACIDOSIS CORRECTED SLOW CORRECTION OF METABOLIC ALKALOSIS SECONDARY TO HYPOVENTILATION SYNDROME ABX PT SSI CT OF HEAD NEGATIVE FOR CVA AT [facility] CHECK DILANTIN LEVEL/ SX COULD BE POST ICTAL START NUVIGIL Plan discussed with: Patient, Other AMADA PRABHAKAR MD Jan 18, 2025 15:10
--- NOTE | 2025-01-18 20:13 | DVHHP2 ---
Assessment/Plan Assessment/Plan H&P 74 F with recurrent morbid obesity, HTN, NIDDM, OHS, UTI admitted for anasarca. Patient was failed to treat as outpatient. direct admit from dr Del Toro Physical exam AOx4 PERLLA MMM Distant heart sound Decreased breath sound Abdomen soft nontender LE edema to thigh Labs EKG imaging reviewed Assessment and plan Anasarca Recurrent UTI with outpatient treatment failure Chronic hypoxic resp failure OHS/BARTOLO NIDDM Obesity HTN meropenem Lasix drip resume home meds basal bolus insulin bipap at night diet cardiac dvt ppx lovenox Plan discussed with: Patient Date of Service: Jan 18, 2025 Billing Provider: LESLIE RUSHING MD Common Visit Codes: [id number] INP/OBS CARE (HIGH) LESLIE RUSHING MD Jan 18, 2025 20:13
[2025-01-18] MEDS: DILANTIN 100MG PO SCH (22:10)
[2025-01-19] VITALS (10 sets, daily range): BP systolic 106–122; BP diastolic 50–70; PULSE 66–88; RESP 14–20; TEMP 97.5–98.3; O2SAT 90–97
[2025-01-19 07:44] LABS: Hematocrit 38.2 % (36.0-46.0); Hemoglobin 13.5 g/dL (12.2-16.2); Mean Corpuscular Hemoglobin 32.7 pg (28.0-32.0); Mean Corpuscular Volume 92.8 fL (80.0-100.0); Nucleated Red Blood Cells % 0.1 %
[2025-01-19 07:54] LABS: Anion Gap 8 (5-15); Chloride 99 mmol/L (98-107); Sodium 140 mmol/L (136-145)
[2025-01-19 07:59] LABS: Calcium 8.1 mg/dL (8.7-10.4); Carbon Dioxide 33 mmol/L (20-31); Potassium 3.3 mmol/L (3.5-5.1)
[2025-01-19 08:00] LABS: BUN/Creatinine Ratio 27.1 (10.0-20.0); Blood Urea Nitrogen 19 mg/dL (9-23); Glucose 76 mg/dL (74-106)
[2025-01-19] MEDS: POTASSIUM EFFERVESENT TAB 25 MEQ PO ONE (10:43)
--- NOTE | 2025-01-19 15:44 | DVHPN2 ---
Assessment/Plan Assessment/Plan Progress note 74 F with recurrent morbid obesity, HTN, NIDDM, OHS, UTI admitted for anasarca. Patient was failed to treat as outpatient. direct admit from dr Del Toro seen today, c/w lasix drip. replete K. bipap at night. pending UCX Physical exam AOx4 PERLLA MMM Distant heart sound Decreased breath sound Abdomen soft nontender LE edema to thigh Labs EKG imaging reviewed Assessment and plan Anasarca Recurrent UTI with outpatient treatment failure Chronic hypoxic resp failure OHS/BARTOLO NIDDM Obesity HTN meropenem Lasix drip resume home meds basal bolus insulin, dc glipizide inpatient bipap at night diet cardiac dvt ppx lovenox Plan discussed with: Patient My Orders Orders - LESLIE RUSHING MD Procedure Category Date Status Time Bipap/Cpap For Sleep RT 01/18/25 Logged Apnea 20:11 Abg W/ Co-Ox RT 01/19/25 Verified 04:00 Basic Metabolic Panel LAB 01/20/25 Verified 04:00 Complete Blood Count LAB 01/20/25 Verified 04:00 Date of Service: Jan 19, 2025 Billing Provider: LELSIE RUSHING MD Common Visit Codes: [id number] INP/OBS CARE(HIGH) LESLIE RUSHING MD Jan 19, 2025 15:44
[2025-01-19] MEDS ORDERED: POTASSIUM EFFERVESENT TAB 25 MEQ PO ONE (15:45)
[2025-01-20] VITALS (10 sets, daily range): BP systolic 100–130; BP diastolic 44–73; PULSE 65–82; RESP 14–20; TEMP 96.9–99.6; O2SAT 91–98
[2025-01-20 07:50] LABS: Hematocrit 39.2 % (36.0-46.0); Hemoglobin 13.7 g/dL (12.2-16.2); Mean Corpuscular Hemoglobin 32.3 pg (28.0-32.0); Mean Corpuscular Volume 92.7 fL (80.0-100.0); Nucleated Red Blood Cells % 0.2 %
[2025-01-20 07:58] LABS: Chloride 101 mmol/L (98-107); Potassium 3.7 mmol/L (3.5-5.1); Sodium 142 mmol/L (136-145)
[2025-01-20 07:59] LABS: Anion Gap 6 (5-15)
[2025-01-20 08:04] LABS: BUN/Creatinine Ratio 28.6 (10.0-20.0); Glucose 92 mg/dL (74-106)
[2025-01-20 08:08] LABS: Blood Urea Nitrogen 28 mg/dL (9-23); Calcium 8.3 mg/dL (8.7-10.4); Carbon Dioxide 35 mmol/L (20-31)
--- NOTE | 2025-01-20 14:04 | DVHPN2 ---
Assessment/Plan Assessment/Plan Progress note 74 F with recurrent morbid obesity, HTN, NIDDM, OHS, UTI admitted for anasarca. Patient was failed to treat as outpatient. direct admit from dr Del Toro seen today, tolerating bipap at night, c/w lasix drip and iv abx. pending UCX Physical exam AOx4 PERLLA MMM Distant heart sound Decreased breath sound Abdomen soft nontender LE edema to thigh Labs EKG imaging reviewed Assessment and plan Anasarca Recurrent UTI with outpatient treatment failure Chronic hypoxic resp failure OHS/BARTOLO NIDDM Obesity HTN meropenem Lasix drip resume home meds basal bolus insulin, dc glipizide inpatient bipap at night diet cardiac dvt ppx lovenox Plan discussed with: Patient Date of Service: Jan 20, 2025 Billing Provider: LESLIE RUSHING MD Common Visit Codes: [id number] INP/OBS CARE(HIGH) LESLIE RUSHING MD Jan 20, 2025 14:04
[2025-01-20] MEDS: levETIRAcetam 1000 mg/100ml 100 ML IV ONE ×3 (17:48→18:57)
[2025-01-20 19:11] LABS: Hematocrit 37.6 % (36.0-46.0); Hemoglobin 13.2 g/dL (12.2-16.2); Mean Corpuscular Hemoglobin 32.3 pg (28.0-32.0); Mean Corpuscular Volume 92.3 fL (80.0-100.0); Nucleated Red Blood Cells % 0.1 %
[2025-01-20 19:29] LABS: Alanine Aminotransferase 33 U/L (7-40); Alkaline Phosphatase 96 U/L (46-116); Anion Gap 7 (5-15); BUN/Creatinine Ratio 42.2 (10.0-20.0); Chloride 101 mmol/L (98-107); Glucose 91 mg/dL (74-106); Potassium 3.8 mmol/L (3.5-5.1); Sodium 143 mmol/L (136-145); Total Protein 6.2 g/dL (5.7-8.2)
[2025-01-20 19:34] LABS: Albumin 3.1 g/dL (3.2-4.8); Bilirubin, Total 0.3 mg/dL (0.2-1.0); Blood Urea Nitrogen 35 mg/dL (9-23); Calcium 8.1 mg/dL (8.7-10.4); Carbon Dioxide 35 mmol/L (20-31)
[2025-01-21] VITALS (9 sets, daily range): BP systolic 103–137; BP diastolic 46–78; PULSE 67–80; RESP 12–20; TEMP 98.3–99.2; O2SAT 91–99
[2025-01-21 07:39] LABS: Chloride 103 mmol/L (98-107); Potassium 4.3 mmol/L (3.5-5.1)
[2025-01-21 07:41] LABS: Anion Gap 10 (5-15)
[2025-01-21 07:42] LABS: Hematocrit 36.3 % (36.0-46.0); Hemoglobin 12.8 g/dL (12.2-16.2); Mean Corpuscular Hemoglobin 33.6 pg (28.0-32.0); Mean Corpuscular Volume 95.6 fL (80.0-100.0); Nucleated Red Blood Cells % 0.0 %
[2025-01-21 07:46] LABS: BUN/Creatinine Ratio 56.2 (10.0-20.0); Glucose 98 mg/dL (74-106)
[2025-01-21 07:47] LABS: Blood Urea Nitrogen 50 mg/dL (9-23); Calcium 7.8 mg/dL (8.7-10.4); Carbon Dioxide 33 mmol/L (20-31); Sodium 146 mmol/L (136-145)
[2025-01-21] MEDS: TAMSULOSIN HYDROCHLORIDE 0.4 MG CAP PO SCH (11:25)
[2025-01-21] MEDS: LEVOTHYROXINE SODIUM 50 MCG TAB PO SCH (11:25)
[2025-01-21] MEDS: carBAMazepine 200 MG TAB PO SCH (12:19)
--- NOTE | 2025-01-21 14:16 | DVHPNRES ---
Progress Note Date Seen: Jan 21, 2025 Resident Creating Document: JUAN F RAO RESIDENT Medical Necessity Reason Pt with a Central, PICC or Fol: Yes The following are medically ne: Lomax Catheter Subjective Review of Systems Marzena Nava is a 74-year-old female who presents to the ED referred from PCP office (Dr. Del Toro) due to bilateral foot swelling which started in September 2024 and progressively got worse until her day of admission, associated with dyspnea and Functional Class III. Patient has developmental delay, she is a poor historian, obtain history of present illness from sister who is at bedside and EMR. Past medical history: Hypertension, diabetes, morbid obesity, CHF (last echocardiogram on 2022 which showed LVEF of 55%), hypothyroidism, childhood seizures, developmental delay, bilateral ankle fracture conservative management, multiple UTIs with sepsis in September 2024, she has been on antibiotics since then, decubitus ulcer, left ovary mass pending evaluation at [facility], urethral cyst pending cystoscopy Surgical history: Cholecystectomy, partial hysterectomy Family history: Grandmother has stomach cancer, cousin had breast cancer, father has heart disease Social history: Lives in [place] with sister (she is the caregiver). Denies current tobacco, alcohol and other drug abuse Allergies: Denies Home medication: Doxasozin, levothyroxine 50 mcg p.o. daily, omeprazole 20 mg p.o. daily, Farxiga 10 mg p.o. daily, Dilantin 200 mg p.o. b.i.d., furosemide 20 mg p.o. b.i.d., Rosita, stool softener, metoprolol 25 mg p.o. daily, glipizide 5 mg p.o. daily, tamsulosin 0.4 mg p.o. daily, carbamazepine, aspirin 81 mg p.o. daily, hydrocodone p.r.n. Patient seen and examined at bedside. Currently has no new complaints. Continues with furosemide pump at 11 mL/min; requires nasal cannula 3 L/min (she was saturating 86% in room air). Ordered ultrasound of bilateral legs to rule out DVT. Objective vital signs Vital Sign Date Time Temp Pulse Resp B/P (MAP) Pulse Ox O2 Delivery O2 Flow Rate FiO2 01/21/25 13:03 98.6 67 20 103/63 (76) 92 98.6 01/20/25 20:00 Room Air* 0 21 Total Intake and Output 01/20/25 01/20/25 01/21/25 15:00 23:00 07:00 Intake Total 761 ml 700 ml Output Total 2000 ml 2400 ml Balance -1239 ml -1700 ml medications Current Medications Medications Dose Ordered Sig/Ernie Route Start Time Stop Time Status Last Admin Dose Admin Meropenem 50 ml @ 17 mls/hr Q8HR IV 01/17/25 22:00 01/21/25 05:36 17 MLS/HR Alprazolam 0.25 mg DAILY PO 01/18/25 10:00 01/21/25 11:25 0.25 MG Gabapentin 300 mg Q6HR PO 01/17/25 18:00 01/21/25 12:19 300 MG Acetaminophen/ Hydrocodone Bitart 1 tab Q6HP PRN PO 01/17/25 17:30 Topiramate 25 mg DAILY PO 01/18/25 10:00 01/21/25 11:26 25 MG Patient Own Medication 110 mcg Q12HR IN 01/17/25 22:00 01/21/25 11:32 110 MCG Metoprolol Succinate 25 mg DAILY PO 01/18/25 10:00 01/21/25 11:26 25 MG Lisinopril 5 mg DAILY PO 01/18/25 10:00 01/21/25 11:27 5 MG Insulin Glargine 40 units BID@0700,2200 SC 01/17/25 22:00 01/21/25 06:36 40 UNITS Pantoprazole Sodium 40 mg DAILY IV 01/18/25 10:00 01/21/25 11:27 40 MG Morphine Sulfate 2 mg Q30M PRN IV 01/17/25 17:45 Furosemide 100 mg/ Sodium Chloride 110 ml @ 11 mls/hr Q10H IV 01/17/25 20:15 01/21/25 05:34 11 MLS/HR Patient Own Medication 2 BID PO 01/18/25 22:00 01/21/25 11:28 2 Carbamazepine 200 mg DAILY PO 01/21/25 10:00 01/21/25 12:19 200 MG Levothyroxine Sodium 50 mcg DAILY PO 01/21/25 10:00 01/21/25 11:25 50 MCG Tamsulosin HCl 0.4 mg DAILY PO 01/21/25 10:00 01/21/25 11:25 0.4 MG Examination Patient lying in bed, in no acute distress; morbidly obese General: [place], somnolent, afebrile, mucosae are moist Cardiovascular: Normal S1 and S2. No murmurs, gallops or rubs Respiratory: Regular ventilation mechanics. Bibasilar rales, rest of lung auscultation is clear Abdomen: Soft, nontender, no organomegaly, normal bowel sounds MSK/skin: Mobilizes 4 limbs. Skin is dry and warm. Bilateral Supramalleolar pitting edema. Decubitus sacral stage II Neurological: Oriented in 1 spheres (only person). No motor no sensitive deficits. Pupils are isocoric and reactive laboratory and microbiology Laboratory Tests 01/21/25 06:34 Test 01/21/25 06:34 Range/Units Serum Glucose 98 74-106 mg/dL Labs and/or images reviewed: Labs reviewed by me, Image(s) reviewed by me Problem List/Assessment/Plan Problem List/Assessment/Plan # Acute on chronic hypoxic respiratory failure due to CHF exacerbation # Acute on chronic diastolic congestive heart failure (HFpEF, LVEF 55%) # Obesity hyperventilation syndrome # Obstructive sleep apnea # Morbid obesity # Rule out PE Patient currently on oxygen therapy with nasal cannula 3 L/min Patient currently on IV diuretics through pump (240 mg IV daily of furosemide). Consulted Cardiology (Dr Del Toro): Continue IV furosemide pump. Was echocardiogram on 2022 showed LVH and LVEF of 55% Ordered new echocardiogram to evaluate ejection fraction and RV function Ordered bilateral lower extremity ultrasound to rule out DVT. Indicated CPAP at night due to obstructive sleep apnea, optimized bronchodilator treatment. # Recurrent UTI with outpatient treatment failure Recent hospitalization due to severe sepsis secondary to UTI with ESBL bacteria Currently under empiric IV antibiotic (meropenem) Ordered urine culture # Questionable breakthrough seizures # Developmental delay # Childhood seizures Completed head [facility] in [facility] which showed no acute findings. Continued antiseizure medication (carbamazepine). We will start Dilantin once phenytoin level is obtained. Fall precautions # Hypertension # Diabetes Currently on bolus insulin (discontinued oral antidiabetic medication) Indicated cardiac diet Gave advice on healthy lifestyle habits Continue with antihypertensive medication # Rule out DVT Ordered bilateral lower limb extremity ultrasound to rule out DVT Currently on DVT prophylaxis with enoxaparin 40 mg subcutaneous daily # Decubitus sacral ulcer - Present on admission Currently under empiric IV antibiotic (meropenem) Ordered wound culture Wound Care consulted # Questionable left ovarian mass # Questionable urethral cysts Per sister, patient was following up as outpatient, but due to diarrhea has been missing her appointments If deemed necessary, PCP we will order in house workup. Goals of care discussed with patient and her sister (sister brought advance directives of patient) for 20 minutes: Full code status. Discussed plan with Dr. Lepe, patient, the patient's sister and nurses: Continue with IV diuretic pump, breathing treatments, night CPAP and IV antibiotic. Awaiting urine culture results. Ordered bilateral lower extremity ultrasound to rule out DVT. Ordered echocardiogram to evaluate LVEF and right ventricular function. Pending Dilantin level to continue home medication for seizures. Patient has poor prognosis. Plan discussed with: Patient, Other (Nurses and sister (NOK)) My Orders My Orders Orders - JUAN F RAO RESIDENT Procedure Category Date Status Time Urine Bacterial MARGIE 01/21/25 Uncollected Culture 09:44 Carbamazepine Tablet PHA 01/21/25 In Process (Tegretol Tablet) 10:00 Levothyroxine Tablet PHA 01/21/25 In Process (Synthroid Tablet) 10:00 Tamsulosin PHA 01/21/25 In Process Hydrochloride (Flomax) 10:00 Addendum Addendum Addendum I was physically present for the puente portions of the service provided to patient by THE RESIDENT. I have reviewed the documentation, discussed the case with resident and agree with the resident's documentation except as noted. Also the patient's clinical case was discussed with the patient's nurse. This medical document was created using an electronic medical record system with computerized dictation system. Although this document has been carefully reviewed, there might still be some phonetic and typographical errors. These areas are purely typographical due to imperfections of the software programs, and do not reflect any compromise in the patient's medical care. Late signature. Date of Service: Jan 21, 2025 Billing Provider: IKE LEPE MD Common Visit Codes: [id number] INP/OBS CARE(HIGH) Secondary Visit Codes: [id number] CARE PLAN 30 MINUTES (20 minutes) JUAN F RAO RESIDENT Jan 21, 2025 14:16 IKE LEPE MD Jan 22, 2025 10:51
[2025-01-21 18:48] LABS: Base Excess 10.4 mmol/L (-2.0-3.0)
[2025-01-21] MEDS: ERGOCALCIFEROL 50,000 UNIT(1.25MG) CAP PO SCH (21:50)
[2025-01-21] MEDS ORDERED: PHENYTOIN SODIUM 100 MG CAP PO SCH (22:00)
--- NOTE | 2025-01-21 22:25 | DVH ---
Bilateral lower extremity venous duplex Clinical History: bilateral leg swelling Comparison: US LT LOWER DVT on DOS: 11/05/24 Technique: Duplex Doppler evaluation of the deep venous systems of both lower extremities from the common femora l veins to the popliteal veins including color Doppler and spectral/pulsed waveform analysis was perf ormed. Findings: RIGHT SIDE: The common femoral vein demonstrates appropriate compressibility and waveform variability. There is compressibility/patency of the great saphenous vein at the proximal thigh. The femoral vein demonstrates appropriate compressibility and waveform variability. The deep femoral vein demonstrates appropriate compressibility and waveform variability. The popliteal vein demonstrates appropriate compressibility and waveform variability. There is normal compressibility at the tibioperoneal trunk. LEFT SIDE: The common femoral vein demonstrates appropriate compressibility and waveform variability. There is compressibility/patency of the great saphenous vein is not visualized. The femoral vein demonstrates appropriate compressibility and waveform variability. The deep femoral vein demonstrates appropriate compressibility and waveform variability. The popliteal vein demonstrates appropriate compressibility and waveform variability. There is normal compressibility at the tibioperoneal trunk. Impression: 1. No right or left femoropopliteal venous thrombosis.
[2025-01-22] VITALS (18 sets, daily range): BP systolic 93–133; BP diastolic 43–78; PULSE 67–96; RESP 12–20; TEMP 97.8–99.2; O2SAT 90–99
[2025-01-22] MEDS: LEVALBUTEROL HCL 1.25 MG/3 ML NEB NEB SCH (00:04)
[2025-01-22] MEDS: IPRATROPIUM BROM 0.5 MG/2.5ML INH SOL NEB SCH (00:04)
--- NOTE | 2025-01-22 00:46 | DVH ---
CHEST RADIOGRAPH Indication: CHF Technique: Single frontal view of the chest was obtained COMPARISON: XY CHEST XRAY 1 VIEW on DOS: 01/17/25, XY CHEST XRAY 1 VIEW on DOS: 11/30/22, CHEST TWO VIE WS ROUTINE on DOS: 09/22/21, CXR2 on DOS: 09/22/21 FINDINGS: Lines and Tubes: None Lungs: Mild diffuse increased prominence of the pulmonary vasculature. No evidence of focal consolida tion. Pleura: No effusion. No pneumothorax. Cardiomediastinal contours: Cardiomegaly. Bones: Unremarkable IMPRESSION: 1. Cardiomegaly and mild diffuse increased prominence of the pulmonary vasculature.
[2025-01-22] MEDS: PANTOPRAZOLE 40 MG TAB PO SCH (05:55)
[2025-01-22 06:24] LABS: INR 1.03 (0.9-1.15); Partial Thromboplastin Time 26.2 SEC (24.5-34.5); Prothrombin Time 10.9 sec (9.3-11.8)
[2025-01-22 06:25] LABS: Hematocrit 37.7 % (36.0-46.0); Hemoglobin 13.3 g/dL (12.2-16.2); Mean Corpuscular Hemoglobin 32.7 pg (28.0-32.0); Mean Corpuscular Volume 92.6 fL (80.0-100.0); Nucleated Red Blood Cells % 0.3 %
[2025-01-22 06:30] LABS: Chloride 100 mmol/L (98-107); Potassium 3.7 mmol/L (3.5-5.1); Sodium 140 mmol/L (136-145)
[2025-01-22 06:31] LABS: Anion Gap 8 (5-15)
[2025-01-22 06:36] LABS: BUN/Creatinine Ratio 47.7 (10.0-20.0); Glucose 88 mg/dL (74-106)
[2025-01-22 06:37] LABS: Magnesium 2.1 mg/dL (1.6-2.6)
[2025-01-22 06:39] LABS: Blood Urea Nitrogen 41 mg/dL (9-23); Calcium 8.4 mg/dL (8.7-10.4); Carbon Dioxide 32 mmol/L (20-31)
--- NOTE | 2025-01-22 08:48 | DVHPN2 ---
Progress Note - Dictate Date Seen: Jan 20, 2025 Medical Necessity Reason Pt with a Central, PICC or Fol: Yes The following are medically ne: Lomax Catheter Subjective PT WITH ANASARCA RECURRENT UTI FAILURE REPEATED OUTPATIENT TREATMENT PMH RESP FAILURE HYPOVENTILATION SYNDROME DIABETES VASCULOPATHGY NEUROPATHY SEIZURE DISORDER OBESITY HTN UTI PYURIA vital signs Vital Sign Date Time Temp Pulse Resp B/P (MAP) Pulse Ox O2 Delivery O2 Flow Rate FiO2 01/22/25 06:54 68 16 99 01/22/25 06:46 Nasal Cannula* 2 01/22/25 05:00 99.2 107/50 (69) 99.2 Total Intake and Output 01/21/25 01/21/25 01/22/25 15:00 23:00 07:00 Intake Total 720 ml 850 ml Output Total 1500 ml 700 ml Balance -780 ml 150 ml medications Current Medications Medications Dose Ordered Sig/Ernie Route Start Time Stop Time Status Last Admin Dose Admin Meropenem 50 ml @ 17 mls/hr Q8HR IV 01/17/25 22:00 01/22/25 05:57 17 MLS/HR Alprazolam 0.25 mg DAILY PO 01/18/25 10:00 01/21/25 11:25 0.25 MG Gabapentin 300 mg Q6HR PO 01/17/25 18:00 01/21/25 18:47 300 MG Acetaminophen/ Hydrocodone Bitart 1 tab Q6HP PRN PO 01/17/25 17:30 Topiramate 25 mg DAILY PO 01/18/25 10:00 01/21/25 11:26 25 MG Patient Own Medication 110 mcg Q12HR IN 01/17/25 22:00 01/21/25 21:56 110 MCG Metoprolol Succinate 25 mg DAILY PO 01/18/25 10:00 01/21/25 11:26 25 MG Lisinopril 5 mg DAILY PO 01/18/25 10:00 01/21/25 11:27 5 MG Insulin Glargine 40 units BID@0700,2200 SC 01/17/25 22:00 01/21/25 21:53 40 UNITS Pantoprazole Sodium 40 mg DAILY IV 01/18/25 10:00 01/21/25 11:27 40 MG Morphine Sulfate 2 mg Q30M PRN IV 01/17/25 17:45 Carbamazepine 200 mg DAILY PO 01/21/25 10:00 9/1/25 12:19 200 MG Levothyroxine Sodium 50 mcg DAILY PO 01/21/25 10:00 01/21/25 11:25 50 MCG Tamsulosin HCl 0.4 mg DAILY PO 01/21/25 10:00 01/21/25 11:25 0.4 MG Enoxaparin Sodium 40 mg DAILY SC 01/22/25 10:00 Pantoprazole Sodium 40 mg DAILY@0600 PO 01/22/25 06:00 01/22/25 05:55 40 MG Levalbuterol HCl 0.625 mg Q6HR NEB 01/22/25 00:00 01/22/25 06:46 0.625 MG Ipratropium [place] 0.5 mg Q6HR NEB 01/22/25 00:00 01/22/25 06:45 0.5 MG Ergocalciferol 50,000 unit Q7D PO 01/21/25 20:30 01/21/25 21:50 50,000 UNIT Diphenhydramine HCl 50 mg Q8HP PRN PO 01/21/25 21:45 01/22/25 05:55 50 MG Phenytoin Sodium 200 mg BID PO 01/22/25 10:00 laboratory and microbiology Laboratory Tests 01/22/25 05:41 Test 01/22/25 05:41 Range/Units Serum Glucose 88 74-106 mg/dL Problem List ANASARCA RECURRENT UTI FAILURE REPEATED OUTPATIENT TREATMENT PMH RESP FAILURE HYPOVENTILATION SYNDROME DIABETES VASCULOPATHGY NEUROPATHY SEIZURE DISORDER OBESITY HTN UTI PYURIA Assessment/Plan PYURIA RESP ACIDOSIS CORRECTED SLOW CORRECTION OF METABOLIC ALKALOSIS SECONDARY TO HYPOVENTILATION SYNDROME ABX PT SSI CT OF HEAD NEGATIVE FOR CVA AT [facility] CHECK DILANTIN LEVEL/ SX COULD BE POST ICTAL START NUVIGIL HOLD LASIX DRIP Plan discussed with: Patient AMADA PRABHAKAR MD Jan 22, 2025 08:48
--- NOTE | 2025-01-22 08:50 | DVHPN2 ---
Progress Note - Dictate Date Seen: Jan 22, 2025 Medical Necessity Reason Pt with a Central, PICC or Fol: Yes The following are medically ne: Lomax Catheter Subjective PT WITH ANASARCA RECURRENT UTI FAILURE REPEATED OUTPATIENT TREATMENT PMH RESP FAILURE HYPOVENTILATION SYNDROME DIABETES VASCULOPATHGY NEUROPATHY SEIZURE DISORDER OBESITY HTN UTI PYURIA vital signs Vital Sign Date Time Temp Pulse Resp B/P (MAP) Pulse Ox O2 Delivery O2 Flow Rate FiO2 01/22/25 06:54 68 16 99 01/22/25 06:46 Nasal Cannula* 2 01/22/25 05:00 99.2 107/50 (69) 99.2 Total Intake and Output 01/21/25 01/21/25 01/22/25 15:00 23:00 07:00 Intake Total 720 ml 850 ml Output Total 1500 ml 700 ml Balance -780 ml 150 ml medications Current Medications Medications Dose Ordered Sig/Ernie Route Start Time Stop Time Status Last Admin Dose Admin Meropenem 50 ml @ 17 mls/hr Q8HR IV 01/17/25 22:00 01/22/25 05:57 17 MLS/HR Alprazolam 0.25 mg DAILY PO 01/18/25 10:00 01/21/25 11:25 0.25 MG Gabapentin 300 mg Q6HR PO 01/17/25 18:00 01/21/25 18:47 300 MG Acetaminophen/ Hydrocodone Bitart 1 tab Q6HP PRN PO 01/17/25 17:30 Topiramate 25 mg DAILY PO 01/18/25 10:00 01/21/25 11:26 25 MG Patient Own Medication 110 mcg Q12HR IN 01/17/25 22:00 01/21/25 21:56 110 MCG Metoprolol Succinate 25 mg DAILY PO 01/18/25 10:00 01/21/25 11:26 25 MG Lisinopril 5 mg DAILY PO 01/18/25 10:00 01/21/25 11:27 5 MG Insulin Glargine 40 units BID@0700,2200 SC 01/17/25 22:00 01/21/25 21:53 40 UNITS Pantoprazole Sodium 40 mg DAILY IV 01/18/25 10:00 01/21/25 11:27 40 MG Morphine Sulfate 2 mg Q30M PRN IV 01/17/25 17:45 Carbamazepine 200 mg DAILY PO 01/21/25 10:00 9/1/25 12:19 200 MG Levothyroxine Sodium 50 mcg DAILY PO 01/21/25 10:00 01/21/25 11:25 50 MCG Tamsulosin HCl 0.4 mg DAILY PO 01/21/25 10:00 01/21/25 11:25 0.4 MG Enoxaparin Sodium 40 mg DAILY SC 01/22/25 10:00 Pantoprazole Sodium 40 mg DAILY@0600 PO 01/22/25 06:00 01/22/25 05:55 40 MG Levalbuterol HCl 0.625 mg Q6HR NEB 01/22/25 00:00 01/22/25 06:46 0.625 MG Ipratropium [place] 0.5 mg Q6HR NEB 01/22/25 00:00 01/22/25 06:45 0.5 MG Ergocalciferol 50,000 unit Q7D PO 01/21/25 20:30 01/21/25 21:50 50,000 UNIT Diphenhydramine HCl 50 mg Q8HP PRN PO 01/21/25 21:45 01/22/25 05:55 50 MG Phenytoin Sodium 200 mg BID PO 01/22/25 10:00 laboratory and microbiology Laboratory Tests 01/22/25 05:41 Test 01/22/25 05:41 Range/Units Serum Glucose 88 74-106 mg/dL Problem List ANASARCA RECURRENT UTI FAILURE REPEATED OUTPATIENT TREATMENT PMH RESP FAILURE HYPOVENTILATION SYNDROME DIABETES VASCULOPATHGY NEUROPATHY SEIZURE DISORDER OBESITY HTN UTI PYURIA Assessment/Plan PYURIA RESP ACIDOSIS CORRECTED SLOW CORRECTION OF METABOLIC ALKALOSIS SECONDARY TO HYPOVENTILATION SYNDROME ABX PT SSI CT OF HEAD NEGATIVE FOR CVA AT [facility] CHECK DILANTIN LEVEL/ SX COULD BE POST ICTAL START NUVIGIL HOLD LASIX DRIP START PO BUMEX Plan discussed with: Patient AMADA PRABHAKAR MD Jan 22, 2025 08:50
[2025-01-22] MEDS: ENOXAPARIN SOD 40 MG/0.4 ML SYRINGE SC SCH (10:40)
[2025-01-22] MEDS: PHENYTOIN SODIUM 100 MG CAP PO SCH (10:43)
[2025-01-22] MEDS: BUMETANIDE 1 MG TAB PO SCH (10:44)
--- NOTE | 2025-01-22 11:20 | DVHPN2 ---
Progress Note Date Seen: Jan 22, 2025 Medical Necessity Reason Pt with a Central, PICC or Fol: Yes The following are medically ne: Kaufman Catheter Reason for kaufman catheter: Strict I&O Subjective Patient reports: No new complaints Review of Systems: HEENT:Normal, CVS:Normal, RESPIRATORY:Normal, GI:Normal, :Normal, MSK:Normal, NEURO:Normal Objective vital signs Vital Sign Date Time Temp Pulse Resp B/P (MAP) Pulse Ox O2 Delivery O2 Flow Rate FiO2 01/22/25 10:45 123/60 01/22/25 10:42 71 01/22/25 09:09 98.7 20 98 98.7 01/22/25 06:46 Nasal Cannula* 2 28 Total Intake and Output 01/21/25 01/21/25 01/22/25 15:00 23:00 07:00 Intake Total 720 ml 850 ml Output Total 1500 ml 700 ml Balance -780 ml 150 ml medications Current Medications Medications Dose Ordered Sig/Ernie Route Start Time Stop Time Status Last Admin Dose Admin Meropenem 50 ml @ 17 mls/hr Q8HR IV 01/17/25 22:00 01/22/25 05:57 17 MLS/HR Alprazolam 0.25 mg DAILY PO 01/18/25 10:00 01/22/25 10:44 0.25 MG Gabapentin 300 mg Q6HR PO 01/17/25 18:00 01/21/25 18:47 300 MG Acetaminophen/ Hydrocodone Bitart 1 tab Q6HP PRN PO 01/17/25 17:30 Topiramate 25 mg DAILY PO 01/18/25 10:00 01/22/25 10:44 25 MG Patient Own Medication 110 mcg Q12HR IN 01/17/25 22:00 01/22/25 10:59 110 MCG Metoprolol Succinate 25 mg DAILY PO 01/18/25 10:00 01/22/25 10:42 25 MG Lisinopril 5 mg DAILY PO 01/18/25 10:00 01/22/25 10:45 5 MG Morphine Sulfate 2 mg Q30M PRN IV 01/17/25 17:45 Carbamazepine 200 mg DAILY PO 01/21/25 10:00 01/22/25 10:44 200 MG Levothyroxine Sodium 50 mcg DAILY PO 01/21/25 10:00 01/22/25 10:40 50 MCG Tamsulosin HCl 0.4 mg DAILY PO 01/21/25 10:00 01/22/25 10:45 0.4 MG Enoxaparin Sodium 40 mg DAILY SC 01/22/25 10:00 01/22/25 10:40 40 MG Pantoprazole Sodium 40 mg DAILY@0600 PO 01/22/25 06:00 01/22/25 05:55 40 MG Levalbuterol HCl 0.625 mg Q6HR NEB 01/22/25 00:00 01/22/25 06:46 0.625 MG Ipratropium [place] 0.5 mg Q6HR NEB 01/22/25 00:00 01/22/25 06:45 0.5 MG Ergocalciferol 50,000 unit Q7D PO 01/21/25 20:30 01/21/25 21:50 50,000 UNIT Diphenhydramine HCl 50 mg Q8HP PRN PO 01/21/25 21:45 01/22/25 10:43 50 MG Phenytoin Sodium 200 mg BID PO 01/22/25 10:00 01/22/25 10:43 200 MG Bumetanide 2 mg DAILY PO 01/22/25 10:00 01/22/25 10:44 2 MG Insulin Glargine 30 units BID@0700,2200 SC 01/22/25 22:00 UNV Examination: GENERAL:Normal, HEENT:Normal, NECK:Normal, LUNGS:Normal, LUNGS:Abnormal (on oxygen), CVS:Normal, ABDOMEN:Normal, MSK:Normal, SKIN:Normal, NEURO:Normal, :Normal laboratory and microbiology Laboratory Tests 01/22/25 05:41 Test 01/22/25 05:41 Range/Units Serum Glucose 88 74-106 mg/dL Problem List/Assessment/Plan Problem List/Assessment/Plan #1 acute on chronic resp failure: cont oxygen #2 acute on chronic diastolic heart failure: bumex, echo #3 dm: ssi, lantus #4 htn #5 morbid obesity #6 uti; ua, iv meropenem #7 hypothyroidism #8 seizure disorder advance care planning- full code- time spent 18 mins Plan discussed with: Patient My Orders My Orders Orders - GROVER BRUCE MD Procedure Category Date Status Time Insulin Lantus PHA 01/22/25 Logged (Glargine) (Lantus) 22:00 D/C Sitter ORDERS 01/22/25 Transmitted 11:10 Pt Request For Service PT 01/22/25 Logged 11:10 Urinalysis LAB 01/22/25 Uncollected 11:10 * Staffing Mgr CONS 01/22/25 Transmitted Consult Date of Service: Jan 22, 2025 Billing Provider: GROVER BRUCE MD Common Visit Codes: [id number] INP/OBS CARE(HIGH) Secondary Visit Codes: [id number] CARE PLAN 30 MINUTES GROVER BRUCE MD Jan 22, 2025 11:20
[2025-01-22 12:32] LABS: Urine Protein, UAD TRACE (Negative)
[2025-01-22] MEDS: INSULIN LANTUS (GLARGINE) 1 /0.01ml (100units/ml) SC SCH (21:46)
[2025-01-23] VITALS (13 sets, daily range): BP systolic 106–142; BP diastolic 64–72; PULSE 66–103; RESP 16–20; TEMP 97.5–98.5; O2SAT 93–100
--- NOTE | 2025-01-23 10:46 | DVHDS ---
DATE OF DISCHARGE: 01/23/2025 HISTORY OF PRESENT ILLNESS: The patient is a 74-year-old lady who is admitted with a history of generalized swelling and shortness of breath and has a history of hypertension, diabetes, obstructive sleep apnea, UTIs and congestive heart failure. HOSPITAL COURSE: The patient had a chest x-ray that showed no consolidation or infiltrates. The patient had Doppler of lower extremity that was negative for DVT. The patient was seen in Cardiology consult by Dr. Del Toro. Her urine culture was negative and white count was within normal limits. The patient's Dilantin level was 8.7. The patient is now improved and will be discharged home to resume her home medications and follow up with Dr. Del Toro in the next 1-2 weeks. She will also resume home health for physical therapy and wound care. FINAL DIAGNOSES: * Acute and chronic respiratory failure. * Acute and chronic diastolic heart failure. * Diabetes mellitus. * Hypertension. * Morbid obesity. * Urinary tract infection. * Hypothyroidism. * Seizure disorder. Time spent in discharge planning and review of plan with the patient, nursing and social service was 39 minutes. MD ANNABELLE Espinosa/TREVON TID: [id number] RECEIPT: [id number]
[2025-01-23 15:20] LABS: Base Excess 6.7 mmol/L (-2.0-3.0)
== END 2025-01-23 19:25 | disposition home health service (06) | DRG 291 ==
LOC: EAST 16:42
PROVIDERS: ADMIT Internal Medicine; ATTEND Internal Medicine
PROC: 5A09357 Assistance with Respiratory Ventilation, Less than 24 Consecutive Hours, Continuous Positive Airway Pressure (ICD-10-PCS; principal; 2025-01-18)
PROC: 5A09357 Assistance with Respiratory Ventilation, Less than 24 Consecutive Hours, Continuous Positive Airway Pressure (ICD-10-PCS; 2025-01-19)
PROC: 5A09357 Assistance with Respiratory Ventilation, Less than 24 Consecutive Hours, Continuous Positive Airway Pressure (ICD-10-PCS; 2025-01-22)
DX: I11.0 Hypertensive heart disease with heart failure (principal); I50.33 Acute on chronic diastolic (congestive) heart failure; J96.21 Acute and chronic respiratory failure with hypoxia; N39.0 Urinary tract infection, site not specified; E87.3 Alkalosis; E66.2 Morbid (severe) obesity with alveolar hypoventilation; E87.4 Mixed disorder of acid-base balance; E11.40 Type 2 diabetes mellitus with diabetic neuropathy, unspecified; G40.909 Epilepsy, unspecified, not intractable, without status epilepticus; E03.9 Hypothyroidism, unspecified; L89.152 Pressure ulcer of sacral region, stage 2; Z79.84 Long term (current) use of oral hypoglycemic drugs; Z79.899 Other long term (current) drug therapy
CPT/HCPCS: 36415; 36600; 71045; 80048; 80053; 80185; 81001; 82306; 82607; 82805; 82962; 83036; 83615; 83735; 83880; 84100; 84443; 85025; 85610; 85730; 87081; 87086; 87205; 93970; 94640; 94660; 97110; 97116; 97163; G0378; J1815; J2185; J2470